=== PATIENT | male | born 1950 | race Caucasian/White ===

== ENCOUNTER 2025-03-26 10:24 | Outpatient (OUT) | payer MEDICARE, OTHER, SELFPAY ==
--- OUTSIDE RECORDS SUMMARY | 2020-10-20 05:39 | XMS_ITS | Continuity of Care Document ---
Author Name [facility] Organization [facility] Care Team Providers Care List Of First Job Ideas Name Role Phone [facility] Unavailable Unavailable Problems Combined list of problems from Department of Defense and Veterans Affairs facilities. It does not include entries that were removed or entered in error. Problem Status Onset Date Problem Type Date of Resolution Comments Source Benign essential hypertension Active Condition [facility] Osteoarthrosis, unspecified whether generalized or localized, involving shoulder Active Condition [facility] [place] [facility] Medications Combined list of outpatient medications from Department of [facility] and [facility] facilities.Medications provided include 1) outpatient medications from the last 15 months, and 2) patient-reported medications. Medication Details Route Status Patient Instructions Prescription Expires Prescription Number Last Dispense Date Ordering Provider Order Date Order Qty Source ASPIRIN 81MG TAB,EC TAKE ONE TABLET BY MOUTH EVERY DAY, WITH BREAKFAS T ORAL ACTIVE LEANDRO REED 2009 [place] CHOLECALCIF ELEAZAR 10MCG (400UNIT) TAB TAKE TWO TABLETS BY MOUTH EVERY DAY ORAL ACTIVE DELMER ALICEA 2020 [facility] CHOLECALCIF ELEAZAR 25MCG (1,000UNIT) TAB TAKE ONE TABLET BY MOUTH EVERY DAY ORAL ACTIVE [place] ALICEA 2020 [facility] FERROUS SO4 325MG TAB TAKE ONE TABLET BY MOUTH ORAL ACTIVE [facility] LISINOPRIL 10MG TAB TAKE ONE TABLET BY MOUTH EVERY DAY ORAL ACTIVE MARILYN HAYES ISTOPHER J 2014 [place] [facility] MULTIVITAMI NS W/MINERALS TAB TAKE 1 CAP/TAB BY MOUTH EVERY DAY ORAL ACTIVE LEANDRO REED 2009 [facility] [facility] Immunizations Combined list of available immunizations from the Department of Defense and [facility] facilities. Immunization Series Date Given Administered By Site Reaction Lot Number CVX Code Drug Regenerator Operator Status Comments Source INFLUENZA, UNSPECIFIED FORMULATION 2019 88 complet ed [facility] INFLUENZA (HISTORICAL) 2018 88 complet ed [facility] [place] [facility] ZOSTER RECOMBINANT 2018 187 complet ed [facility] ZOSTER RECOMBINANT 2018 187 complet ed [facility] PNEUMOCOCCAL POLYSACCHARID E PPV23 2018 33 complet ed [facility] INFLUENZA (HISTORICAL) 2017 88 complet ed [facility] [place] [facility] PNEUMOCOCCAL CONJUGATE PCV 13 2017 133 complet ed [facility] INFLUENZA (HISTORICAL) 2016 88 complet ed [facility] [place] [facility] INFLUENZA (HISTORICAL) 2014 [address] [facility] [place] [facility] INFLUENZA, UNSPECIFIED FORMULATION 2011 88 complet ed [facility] INFLUENZA, UNSPECIFIED FORMULATION 2010 88 complet ed [facility] INFLUENZA, UNSPECIFIED FORMULATION 2009 88 complet ed [facility] Social History Combined list of available smoking, tobacco, and other social history from Department of Defense and Veterans Affairs facilities. Social History Type Response Date Comment Sourc e Tobacco smoking status NHIS [facility]-TOBACCO NEVER USED 08/08/2018 [facility] History of tobacco use [place]-TOBACCO NEVER USED 08/08/2018 [facility] History of tobacco use LIFETIME NON-USER OF TOBACCO 03/15/2010 [facility]
--- OUTSIDE RECORDS SUMMARY | 2025-03-18 23:59 | XMS_ITS | Continuity of Care Document ---
Author Organization [facility] Address [address] 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) - 03/18/25 Discharge Disposition: Home (Routine DC) Attending Physician: Jair PETTY MD Encounter Type: Clinic Allergies, Adverse Reactions, Alerts No Known Allergies Assessment and Plan Future Appointments Appointment Date:04/04/2025 09:00:00 AM Scheduled Provider: Location:[facility] Appointment Type:URO Nurse Visit Appointment Date:04/09/2025 10:45:00 AM Scheduled Provider:Jair PETTY MD Location:[facility] Appointment Type:URO Office Visit Immunizations Given and Recorded Vaccine Date Status Refusal Reason zoster vaccine, inactivated 11/20/18 Recorded zoster vaccine, inactivated 09/17/18 Recorded pneumococcal 23-valent vaccine 08/08/18 Recorded pneumococcal 13-valent vaccine 08/04/17 Recorded influenza virus vaccine, inactivated 04/06/17 Melvin rded Medications alfuzosin 10 mg ER Tab 10 mg = 1 tab(s), Oral, Daily, X 90 day(s), # 90 tab(s), Refills(s) 3, Pharmacy: [facility], 174, cm, 02/27/24 10:10:00 EDT, Height/Length Dosing, 79, kg, 02/27/24 10:10:00 EDT, Weight Dosing Start Date: 03/28/24 Stop Date: 03/23/25 Status: Ordered Quantity: 90.0 Unit: tab(s) Repeat number: 4 Indications: Benign prostatic hyperplasia with lower urinary tract symptoms; Allergy Relief mg, Oral, q6hr Start Date: 02/27/24 Status: Ordered Repeat number: 1 apple cider vinegar apple cider vinegar Start Date: 02/27/24 Status: Ordered Repeat number: 1 aspirin 81 mg oral capsule mg cap(s), Oral, q24hr Start Date: 02/27/24 Status: Ordered Repeat number: 1 cinnamon mg, Oral Start Date: 02/27/24 Status: Ordered Repeat number: 1 doxycycline hyclate 100 mg Cap 100 mg = 1 cap(s), Oral, BID, Avoid sun exposure and calcium products., X 30 day(s), # 60 cap(s), Refills(s) 0, Pharmacy: [facility], 174, cm, 03/05/25 13:55:00 EDT, Height/Length Dosing, 82.7, kg, 03/05/25 13:55:00 EDT, Weight Dosing Start Date: 03/05/25 Stop Date: 04/04/25 Status: Ordered Quantity: 60.0 Unit: cap(s) Repeat number: 1 Indications: Chronic prostatitis; dutasteride 0.5 mg Cap 0.5 mg = 1 cap(s), Oral, Daily, X 90 day(s), # 90 cap(s), Refills(s) 3, Pharmacy: [facility], 174, cm, 09/04/24 10:38:00 EST, Height/Length Dosing, 83.5, kg, 09/04/24 10:38:00 EST,Weight Dosing Start Date: 09/04/24 Stop Date: 08/30/25 Status: Ordered Quantity: 90.0 Unit: cap(s) Repeat number: 4 fenofibrate 145 mg Tab 145 mg = 1 tab(s), Oral, Daily Start Date: 02/27/24 Status: Ordered Repeat number: 1 lisinopril 10 mg Tab 10 mg = 1 tab(s), Oral, Daily Start Date: 02/27/24 Status: Ordered Repeat number: 1 Multi Vitamin+ Start Date: 02/27/24 Status: Ordered Repeat number: 1 super beta advace for prostate super beta advace for prostate Start Date: 02/27/24 Status: Ordered Repeat number: 1 Vitamin C 500 mg Tab 500 mg = 1 tab(s), Oral, Daily Start Date: 03/05/25 Status: Ordered Repeat number: 1 Vitamin D3 Start Date: 02/27/24 Status: Ordered Repeat number: 1 Zinc Start Date: 02/27/24 Status: Ordered Repeat number: 1 Problem List Condition Confirmation Course Effective Dates Status H ealth Status Informant BPH with obstruction/lower urinary tract symptoms Confirmed Active Chronic prostatitis Confirmed Active ED (erectile dysfunction) Confirmed Active History of lower leg fracture Confirmed Active Hyperlipidemia Confirmed Active Hypertension Confirmed Active Bladder neoplasm of uncertain malignant potential Confirmed Active Elevated PSA Confirmed Active Procedures Procedure Date Related Diagnosis Body Site Status Cystoscope 03/18/25 Completed MRI-US fusion guided transpe rineal biopsy of prostate 08/20/24 Completed Appendectomy Completed Colonoscopy Completed Phacoemulsification of catar act with intraocular lens implantation Co mpleted Procedure on back Complet ed Total left shoulder replacement Completed Social History Social History Type Response Smoking Status Never (less than 100 in lifetime);Never; Concerns about tobacco use in household: No; Smoking Cessation Yes entered on: 03/05/25 Sex Male Sex Representation Male (finding) Hospital Discharge Instructions Patient Education 03/18/2025 11:09:09 Transurethral Resection of Bladder Tumor, Care After Transurethral Resection of Bladder Tumor, Care After The following information offers guidance on how to care for yourself after your procedure. Your health care provider may also give you more specific instructions. If you have problems or questions, contact your health care provider. What can I expect after the procedure? After the procedure, it is common to have: ??? A small amount of blood or small blood clots in your urine for up to 2 weeks. ??? Soreness or mild pain from your catheter. After your catheter is removed, you may have mild soreness, especially when urinating. ??? A need to urinate often. ??? Pain in your lower abdomen. Follow these instructions at home: Medicines ??? Take jlbn-avz-vzeqjdj and prescription medicines only as told by your health care provider. ??? If you were prescribed an antibiotic medicine, take it as told by your health care provider. Donot stop taking the antibiotic even if you start to feel better. ??? Ask your health care provider if the medicine prescribed to you: ??? Requires you to avoid driving or using machinery. ??? Can cause constipation. You may need to take these actions to prevent or treat constipation: ??? Drink enough fluid to keep your urine pale yellow. ??? Take eiaq-wxq-zclmnlz or prescription medicines. ??? Eat foods that are high in fiber, such as beans, whole grains, and fresh fruits and vegetables. ??? Limit foods that are high in fat and processed sugars, such as fried or sweet foods. Activity ??? If you were given a sedative during the procedure, it can affect you for several hours. Do not drive or operate machinery until your health care provider says that it is safe. ??? Rest as told by your health care provider. ??? Avoid sitting for a long time without moving. Get up to take short walks every 1???2 hours. This is important to improve blood flow and breathing. Ask for help if you feel weak or unsteady. ??? Do not lift anything that is heavier than 10 lb (4.5 kg), or the limit that you are told, untilyour health care provider says that it is safe. ??? Avoid intense physical activity for as long as told by your health care provider. ??? Do not have sex until your health care provider approves. ??? Return to your normal activities as told by your health care provider. Ask your health care provider what activities are safe for you. General instructions ??? If you have a catheter, follow instructions from your health care provider about caring for your catheter and your drainage bag. ??? Do not drink alcohol for as long as told by your health care provider. This is especially important if you are taking prescription pain medicines. ??? Do not use any products that contain nicotine or tobacco. These products include cigarettes, chewing tobacco, and vaping devices, such as e-cigarettes. If you need help quitting, ask your health care provider. ??? Wear compression stockings as told by your health care provider. These stockings help to prevent blood clots and reduce swelling in your legs. ??? Keep all follow-up visits. This is important. ??? You will need to be followed closely with regular checks of your bladder and urethra (cystoscopies) to make sure that the cancer does not come back. Contact a health care provider if: ??? You have blood in your urine for more than 2 weeks. ??? You become constipated. Signs of constipation may include: ??? Having fewer than three bowel movements in a week. ??? Difficulty having a bowel movement. ??? Stools that are dry, hard, or larger than normal. ??? You have a urinary catheter in place, and you have: ??? Spasms or pain. ??? Problems with your catheter or your catheter is blocked. ??? Your catheter has been taken out but you are unable to urinate. ??? You have signs of infection, such as: ??? Fever or chills. ??? Cloudy or bad-smelling urine. Get help right away if: ??? You have severe abdominal pain that gets worse or does not improve with medicine. ??? You have a lot of large blood clots in your urine. ??? You develop swelling or pain in your leg. ??? You have difficulty breathing. These symptoms may be an emergency. Get help right away. Call 911. ??? Do not wait to see if the symptoms will go away. ??? Do not drive yourself to the hospital. Summary ??? After your procedure, it is common to have a small amount of blood or small blood clots in yoururine, soreness or mild pain from your catheter, and pain in your lower abdomen. ??? Take tagj-jye-qlucfhw and prescription medicines only as told by your health care provider. ??? Rest as told by your health care provider. Follow your health care provider's instructions about returning to normal activities. Ask what activities are safe for you. ??? If you have a catheter, follow instructions from your health care provider about caring for your catheter and your drainage bag. This information is not intended to replace advice given to you by your health care provider. Make sure you discuss any questions you have with your health care provider. Document Revised: 07/15/2022 Document Reviewed: 07/15/2022 [employer] Patient Education ?? 2023 [email or web address]. 03/18/2025 11:09:08 Transurethral Resection of Bladder Tumor Transurethral Resection of Bladder Tumor Transurethral resection of a bladder tumor is the removal (resection) of cancerous tissue (tumor) from the inside wall of the bladder. The bladder is the organ that holds urine. The tumor is removed through the tube that carries urine out of the body (urethra). In a transurethral resection, a thin telescope with a light, a tiny camera, and an electric cuttingedge (resectoscope) is passed through the urethra. In men, the opening of the urethra is at the endof the penis. In women, it is just above the opening of the vagina. Tell a health care provider about: ??? Any allergies you have. ??? All medicines you are taking, including vitamins, herbs, eye drops, creams, and cudj-rlq-eaxxhnt medicines. ??? Any problems you or family members have had with anesthetic medicines. ??? Any bleeding problems you have. ??? Any surgeries you have had. ??? Any medical conditions you have, including recent urinary tract infections. ??? Whether you are or may be . What are the risks? Generally, this is a safe procedure. However, problems may occur, including: ??? Infection. ??? Bleeding. ??? Allergic reactions to medicines. ??? Damage to nearby structures or organs. ??? Difficulty urinating from blockage of the urethra or not being able to urinate (urinary retention). ??? Deep vein thrombosis. This is a blood clot that can develop in your leg. ??? Recurring cancer. What happens before the procedure? When to stop eating and drinking Follow instructions from your health care provider about what you may eat and drink before your procedure. These may include: ??? 8 hours before your procedure ??? Stop eating most foods. Do not eat meat, fried foods, or fatty foods. ??? Eat only light foods, such as toast or crackers. ??? All liquids are okay except energy drinks and alcohol. ??? 6 hours before your procedure ??? Stop eating. ??? Drink only clear liquids, such as water, clear fruit juice, black coffee, plain tea, and sportsdrinks. ??? Do not drink energy drinks or alcohol. ??? 2 hours before your procedure ??? Stop drinking all liquids. ??? You may be allowed to take medicines with small sips of water. Medicines Ask your health care provider about: ??? Changing or stopping your regular medicines. This is especially important if you are taking diabetes medicines or blood thinners. ??? Taking medicines such as aspirin and ibuprofen. These medicines can thin your blood. Do not take these medicines unless your health care provider tells you to take them. ??? Taking wjwo-lgq-geblmdb medicines, vitamins, herbs, and supplements. General instructions ??? If you will be going home right after the procedure, plan to have a responsible adult: ??? Take you home from the hospital or clinic. You will not be allowed to drive. ??? Care for you for the time you are told. ??? Ask your health care provider what steps will be taken to help prevent infection. These steps may include: ??? Washing skin with a germ-killing soap. ??? Taking antibiotic medicine. ??? Do not use any products that contain nicotine or tobacco for at least 4 weeks before the procedure. These products include cigarettes, chewing tobacco, and vaping devices, such as e-cigarettes. If you need help quitting, ask your health care provider. What happens during the procedure? An IV will be inserted into one of your veins. ??? You will be given one or more of the following: ??? A medicine to help you relax (sedative). ??? A medicine that is injected into your spine to numb the area below and slightly above the injection site (spinal anesthetic). ??? A medicine that is injected into an area of your body to numb everything below the injection site (regional anesthetic). ??? A medicine to make you fall asleep (general anesthetic). ??? Your legs will be placed in foot rests (stirrups) to open your legs and bend your knees. ??? The resectoscope will be passed through your urethra and into your bladder. ??? The part of your bladder with the tumor will be resected by the cutting edge of the resectoscope. ??? Fluid will be passed to rinse out the cut tissues (irrigation). ??? The resectoscope will then be taken out. ??? A small, thin tube (catheter) will be passed through your urethra and into your bladder. The catheter will drain urine into a bag outside of your body. The procedure may vary among health care providers and hospitals. What happens after the procedure? Your blood pressure, heart rate, breathing rate, and blood oxygen level will be monitored untilyou leave the hospital or clinic. ??? You may continue to receive fluids and medicines through an IV. ??? You will be given pain medicine to relieve pain. ??? You will have a catheter to drain your urine. ??? The amount of urine will be measured. If you have blood in your urine, your bladder may be rinsed out by passing fluid through your catheter. ??? You will be encouraged to walk as soon as you can. ??? You may have to wear compression stockings. These stockings help to prevent blood clots and reduce swelling in your legs. ??? If you were given a sedative during the procedure, it can affect you for several hours. Do not drive or operate machinery until your health care provider says that it is safe. Summary ??? Transurethral resection of a bladder tumor is the removal (resection) of a cancerous growth (tumor) on the inside wall of the bladder. ??? To do this procedure, your health care provider uses a thin telescope with a light, a tiny camera, and an electric cutting edge (resectoscope) that is guided to your bladder through your urethra.The part of your bladder that is affected by the tumor will be resected by the cutting edge of the resectoscope. ??? A catheter will be passed through your urethra and into your bladder. The catheter will drain urine into a bag outside of your body. ??? If you will be going home right after the procedure, plan to have a responsible adult take you home from the hospital or clinic. You will not be allowed to drive. This information is not intended to replace advice given to you by your health care provider. Make sure you discuss any questions you have with your health care provider. Document Revised: 07/15/2022 Document Reviewed: 07/15/2022 [employer] Patient Education ?? 2023 [email or web address]. 03/18/2025 11:09:04 Transurethral Resection of the Prostate, Care After Transurethral Resection of the Prostate, Care After The following information offers guidance on how to care for yourself after your procedure. Your health care provider may also give you more specific instructions. If you have problems or questions, contact your health care provider. What can I expect after the procedure? After the procedure, it is common to have: ??? Mild pain in your lower abdomen. ??? Soreness or mild discomfort in your penis or when you urinate. This is from having the catheterinserted during the procedure. ??? A sudden urge to urinate (urgency). ??? A need to urinate often. ??? A small amount of blood in your urine. You may notice some small blood clots in your urine. These are normal. Follow these instructions at home: Medicines ??? Take gnoi-eee-rhdfahd and prescription medicines only as told by your health care provider. ??? If you were prescribed an antibiotic medicine, take it as told by your health care provider. Donot stop taking the antibiotic even if you start to feel better. Activity ??? Rest as told by your health care provider. ??? Avoid sitting for a long time without moving. Get up to take short walks every 1???2 hours. This is important to improve blood flow and breathing. Ask for help if you feel weak or unsteady. You may increase your physical activity gradually as you start to feel better. ??? Do not drive or operate machinery until your health care provider says that it is safe. ??? Do not ride in a car for long periods of time, or as told by your health care provider. ??? Avoid intense physical activity for as long as told by your health care provider. ??? Do not lift anything that is heavier than 10 lb (4.5 kg), or the limit that you are told, untilyour health care provider says that it is safe. ??? Do not have sex until your health care provider approves. ??? Return to your normal activities as told by your health care provider. Ask your health care provider what activities are safe for you. Preventing constipation You may need to take these actions to prevent or treat constipation: ??? Drink enough fluid to keep your urine pale yellow. ??? Take axjx-lzp-ekbqroy or prescription medicines. ??? Eat foods that are high in fiber, such as beans, whole grains, and fresh fruits and vegetables. ??? Limit foods that are high in fat and processed sugars, such as fried or sweet foods. General instructions ??? Do not strain when you have a bowel movement. Straining may lead to bleeding from the prostate.This may cause blood clots and trouble urinating. ??? Do not use any products that contain nicotine or tobacco. These products include cigarettes, chewing tobacco, and vaping devices, such as e-cigarettes. If you need help quitting, ask your health care provider. ??? If you go home with a tube draining your urine (urinary catheter), care for the catheter as told by your health care provider. ??? Wear compression stockings as told by your health care provider. These stockings help to prevent blood clots and reduce swelling in your legs. ??? Keep all follow-up visits. This is important. Contact a health care provider if: ??? You have signs of infection, such as: ??? Fever or chills. ??? Urine that smells very bad. ??? Swelling around your urethra that is getting worse. ??? Swelling in your penis or testicles. ??? You have difficulty urinating. ??? You have pain that gets worse or does not improve with medicine. ??? You have blood in your urine that does not go away after 1 week of resting and drinking more fluids. ??? You have trouble having a bowel movement. ??? You have trouble having or keeping an erection. ??? No semen comes out during orgasm (dry ejaculation). ??? You have a urinary catheter in place, and you have: ??? Spasms or pain. ??? Problems with your catheter or your catheter is blocked. Get help right away if: ??? You are unable to urinate. ??? You are having more blood clots in your urine instead of fewer. ??? You have: ??? Large blood clots. ??? A lot of blood in your urine. ??? Pain in your back or lower abdomen. ??? You have difficulty breathing or shortness of breath. ??? You develop swelling or pain in your leg. These symptoms may be an emergency. Get help right away. Call 911. ??? Do not wait to see if the symptoms will go away. ??? Do not drive yourself to the hospital. Summary ??? After the procedure, it is common to have a small amount of blood in your urine. ??? Follow restrictions about lifting and sexual activity as told by your health care provider. Askwhat activities are safe for you. ??? Keep all follow-up visits. This is important. This information is not intended to replace advice given to you by your health care provider. Make sure you discuss any questions you have with your health care provider. Document Revised: 04/05/2022 Document Reviewed: 04/05/2022 [employer] Patient Education ?? 2023 [email or web address]. 03/18/2025 11:09:03 Transurethral Resection of the Prostate Transurethral Resection of the Prostate Transurethral resection of the prostate (TURP) is the removal, or resection, of part of the prostate tissue. This procedure is done to treat an enlarged prostate gland (benign prostatic hyperplasia). The goal of TURP is to remove enough prostate tissue to allow for a normal flow of urine. The procedure will allow you to empty your bladder more completely when you urinate so that you can urinate less often. In a transurethral resection, a thin telescope with a light, a camera, and an electric cutting edge(resectoscope) is passed through the urethra and into the prostate. The opening of the urethra is at the end of the penis. Tell a health care provider about: ??? Any allergies you have. ??? All medicines you are taking, including vitamins, herbs, eye drops, creams, and cjfe-fdw-hzljwac medicines. ??? Any problems you or family members have had with anesthetic medicines. ??? Any bleeding problems you have. ??? Any surgeries you have had. ??? Any medical conditions you have. ??? Any prostate infections you have had. What are the risks? Generally, this is a safe procedure. However, problems may occur, including: ??? Infection. ??? Bleeding. ??? Allergic reactions to medicines. ??? Blood in the urine (hematuria). ??? Damage to nearby structures or organs. Other problems may occur, but they are rare. They include: ??? Dry ejaculation, or having no semen come out during orgasm. ??? Erectile dysfunction, or being unable to have or keep an erection. ??? Scarring that leads to narrowing of the urethra. This narrowing may block the flow of urine. ??? Inability to control when you urinate (incontinence). ??? Deep vein thrombosis. This is a blood clot that can develop in your leg. ??? TURP syndrome. This can happen when you lose too much sodium during or after the procedure. Some signs and symptoms of this condition include: ??? Weakness. ??? Headaches. ??? Nausea or vomiting. ??? Muscle cramping. What happens before the procedure? When to stop eating and drinking Follow instructions from your health care provider about what you may eat and drink before your procedure. These may include: ??? 8 hours before your procedure ??? Stop eating most foods. Do not eat meat, fried foods, or fatty foods. ??? Eat only light foods, such as toast or crackers. ??? All liquids are okay except energy drinks and alcohol. ??? 6 hours before your procedure ??? Stop eating. ??? Drink only clear liquids, such as water, clear fruit juice, black coffee, plain tea, and sportsdrinks. ??? Do not drink energy drinks or alcohol. ??? 2 hours before your procedure ??? Stop drinking all liquids. ??? You may be allowed to take medicines with small sips of water. If you do not follow your health care provider's instructions, your procedure may be delayed or canceled. Medicines Ask your health care provider about: ??? Changing or stopping your regular medicines. This is especially important if you are taking diabetes medicines or blood thinners. ??? Taking medicines such as aspirin and ibuprofen. These medicines can thin your blood. Do not take these medicines unless your health care provider tells you to take them. ??? Taking kvor-gzt-tukttjd medicines, vitamins, herbs, and supplements. Surgery safety Ask your health care provider what steps will be taken to help prevent infection. These steps may include: ??? Removing hair at the surgery site. ??? Washing skin with a germ-killing soap. ??? Taking antibiotic medicine. General instructions ??? Do not use any products that contain nicotine or tobacco for at least 4 weeks before the procedure. These products include cigarettes, chewing tobacco, and vaping devices, such as e-cigarettes. If you need help quitting, ask your health care provider. ??? If you will be going home right after the procedure, plan to have a responsible adult: ??? Take you home from the hospital or clinic. You will not be allowed to drive. ??? Care for you for the time you are told. What happens during the procedure? An IV will be inserted into one of your veins. ??? You will be given one or more of the following: ??? A medicine to help you relax (sedative). ??? A medicine to make you fall asleep (general anesthetic). ??? A medicine that is injected into your spine to numb the area below and slightly above the injection site (spinal anesthetic). ??? Your legs will be placed in foot rests (stirrups) so that your legs are apart and your knees are bent. ??? The resectoscope will be passed through your urethra to your prostate. ??? Parts of your prostate will be resected using the cutting edge of the resectoscope. ??? Fluid will be passed to rinse out the cut tissues (irrigation). ??? The resectoscope will be removed. ??? A small, thin tube (catheter) will be passed through your urethra and into your bladder. The catheter will drain urine into a bag outside of your body. The procedure may vary among health care providers and hospitals. What happens after the procedure? Your blood pressure, heart rate, breathing rate, and blood oxygen level will be monitored untilyou leave the hospital or clinic. ??? You will be given fluids through the IV. The IV will be removed when you start eating and drinking normally. ??? You may have some pain. Pain medicine will be available to help you. ??? You will have a catheter draining your urine. ??? You may have blood in your urine. Your catheter may be kept in until your urine is clear. ??? Your urinary drainage will be monitored. If necessary, your bladder may be rinsed out (irrigated) through your catheter. ??? You will be encouraged to walk around as soon as possible. ??? You may have to wear compression stockings. These stockings help to prevent blood clots and reduce swelling in your legs. ??? If you were given a sedative during the procedure, it can affect you for several hours. Do not drive or operate machinery until your health care provider says that it is safe. Summary ??? Transurethral resection of the prostate (TURP) is the removal (resection) of part of the prostate tissue. ??? The goal of this procedure is to remove enough prostate tissue to allow for a normal flow of urine. ??? Follow instructions from your health care provider about taking medicines and about eating and drinking before the procedure. This information is not intended to replace advice given to you by your health care provider. Make sure you discuss any questions you have with your health care provider. Document Revised: 04/05/2022 Document Reviewed: 04/05/2022 [employer] Patient Education ?? 2023 [employer]. Follow Up Care 03/17/2025 12:44:54 With:MALINDA MCCLOUD, Jair Clark, URL Address: [facility] [address], [place] [address]- When: Unknown Patient Care team information Care Team Personnel Name: Glendy BURNETT DO Member Role: Primary Care Physician Address: [address] [place] [id number] Telecom: Care Team Related Persons Name: SLOAN ABURTO Insurance Providers Guarantor name: STEW VASQUEZ Health Plan Information #: 1 Payer: MEDICARE Payer Identifier: [id number] Member Number: [id number] Group Number: a Subscriber Identifier: [id number] Relationship to Subscriber: Self Coverage Type: MEDICARE Coverage Verification Date: NA Telecom: [phone] Address: [address] Health Plan Information #: 2 Payer: [employer] Payer Identifier: [id number] Member Number: [id number] Group Number: [id number] Subscriber Identifier: [id number] Relationship to Subscriber: Self Coverage Type: PRIVATE HEALTH INSURANCE Coverage Verification Date: NA Telecom: NA Address: [address] [place] [address]
--- OUTSIDE RECORDS SUMMARY | 2025-03-26 10:30 | XMS_ITS | Clinical Summary ---
Author Organization [facility] Address [address] [place] [address] Care Team Providers Care Credit Reference Clerk Name Role Phone Unavailable Primary Care Provider Unavailabl e Allergies No known active allergies Medications tamsulosin (Flomax) 0.4 MG 24 hr capsule 4 Active lisinopril 10 MG tablet 4 Active fenofibrate (Tricor) 145 MG tablet 4 Active ASPIRIN 81 PO Take by mouth Ac tive methylPREDNISol one (Medrol Dospak) 4 MG tabletsIndicati ons:Acute non-recurrent frontal sinusitis Follow schedule on package instructions 21 tablet 4 Active Social History Tobacco Use Types Packs/Day Years Used Date Smoking Tobacco: Never Assessed Tobacco Cessation:Counseling Given: Not Answered Sex and Gender Information Value Date Recorded Sex Assigned at Not on file Legal Sex Male 4:44 PM EDT Gender Identity Not on file Sexual Orientation Not on file Last Filed Vital Signs Vital Sign Reading Time Taken Comments Blood Pressure 110/70 12/05/2023 3:06 PM EDT Pulse 95 12/05/2023 3:06 PM EDT Temperature 36.4 C (97.6 F) 12/05/2023 3:06 PM EDT Respiratory Rate - - Oxygen Saturation 95% 12/05/2023 3:06 PM EDT Inhaled Oxygen Concentration - - Weight 82.6 kg (182 lb) 12/05/2023 3:06 PM EDT Height - - Body Mass Index - - Plan of Treatment Not on file Insurance [facility] MEDICARE ADVANTAGE
--- OUTSIDE RECORDS SUMMARY | 2025-03-26 10:30 | XMS_ITS | Clinical Summary ---
Author Organization [facility] Address [address] [place] [address], [address] [place] [address] Care Team Providers Care Golf Club Assembler Name Role Phone Unavailable Primary Care Provider Unavailabl e Social History Tobacco Use Types Packs/Day Years Used Date Smoking Tobacco: Never Assessed Sex and Gender Information Value Date Recorded Sex Assigned at Not on file Legal Sex Male 9:47 PM EST Gender Identity Not on file Sexual Orientation Not on file Plan of Treatment Not on file
--- NOTE | 2025-03-26 10:53 | ECG_ITS ---
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
--- NOTE | 2025-03-26 11:24 | PM.PRESUREVA ---
History of Present Illness History of Present Illness Chief complaint: Bladder Tumor, BPH with Obstruction Narrative: Patient presents for presurgical testing. Please see HPI from Dr. Goldberg dated March 18, 2025. Review of Systems ROS Narrative Please see ROS from Dr. Goldberg dated March 18, 2025. [facility] Medical History (Updated 03/26/25 @ 11:15 by Corrie Simpson NP) Arthritis ?M19.90 - Unspecified osteoarthritis, unspecified site (ICD-10) Seasonal allergies ?J30.2 - Other seasonal allergic rhinitis (ICD-10) Heartburn ?R12 - Heartburn (ICD-10) Leg fracture, right ?S82.91XA - Unspecified fracture of right lower leg, initial encounter for closed fracture (ICD-10) Hypertension ?I10 - Essential (primary) hypertension (ICD-10) Erectile dysfunction ?N52.9 - Male erectile dysfunction, unspecified (ICD-10) Chronic prostatitis ?N41.1 - Chronic prostatitis (ICD-10) Elevated PSA ?R97.20 - Elevated prostate specific antigen [PSA] (ICD-10) Hyperlipidemia ?E78.5 - Hyperlipidemia, unspecified (ICD-10) BPH with obstruction/lower urinary tract symptoms ?N40.1 - Benign prostatic hyperplasia with lower urinary tract symptoms (ICD-10) ?N13.8 - Other obstructive and reflux uropathy (ICD-10) Bladder tumor ?D49.4 - Neoplasm of unspecified behavior of bladder (ICD-10) Surgical History (Updated 03/26/25 @ 11:15 by Corrie Simpson NP) History of lumbosacral spine surgery ?Z98.890 - Other specified postprocedural states (ICD-10) Status post total shoulder arthroplasty ?Z96.619 - Presence of unspecified artificial shoulder joint (ICD-10) History of cataract extraction with lens replacement H/O colonoscopy ?Z98.890 - Other specified postprocedural states (ICD-10) History of appendectomy ?Z90.49 - Acquired absence of other specified parts of digestive tract (ICD-10) H/O prostate biopsy ?Z98.890 - Other specified postprocedural states (ICD-10) H/O cystoscopy ?Z98.890 - Other specified postprocedural states (ICD-10) Family History (Updated 03/26/25 @ 11:15 by Corrie Simpson NP) Other Family history of aneurysm Family history of colon cancer Family history of diabetes mellitus Family history of heart disease Family history of hypertension Social History (Updated 03/26/25 @ 11:09 by Corrie Simpson NP) Within the past year, how often did you have a drink containing alcohol: never Score interpretation: A score less than 4 is consistent with normal alcohol consumption. Smoking status: Never smoker Non-prescribed substance use: denies use Highest level of school completed/degree received: high school graduate Meds Home Medications and Allergies Home Medications ?Medication ?Instructions ?Recorded ?Confirmed ?Type alfuzosin 10 mg tablet,extended 10 mg PO DAILY 03/26/25 03/26/25 History release 24 hr apple cider vinegar 500 mg tablet 500 mg PO DAILY 03/26/25 03/26/25 History ascorbic acid (vitamin C) 500 mg 500 mg PO DAILY 03/26/25 03/26/25 History capsule aspirin 81 mg tablet,delayed 81 mg PO DAILY 03/26/25 03/26/25 History release (Adult Aspirin Regimen) mdpzkqt-sigpodimi-zgon 333 mg-133 1 tab PO DAILY 03/26/25 03/26/25 History mg-5 mg tablet cetirizine 10 mg tablet (24Hour 10 mg PO DAILY 03/26/25 03/26/25 History Allergy) cholecalciferol (vitamin D3) 50 2,000 unit PO DAILY 03/26/25 03/26/25 History mcg (2,000 unit) capsule cinnamon bark 500 mg capsule 1,000 mg PO DAILY 03/26/25 03/26/25 History (Cinnamon) dutasteride 0.5 mg capsule 0.5 mg PO DAILY 03/26/25 03/26/25 History fenofibrate nanocrystallized 145 145 mg PO DAILY 03/26/25 03/26/25 History mg tablet lisinopril 10 mg tablet 10 mg PO DAILY 03/26/25 03/26/25 History multivitamin (Daily Multi-Vitamin 1 tab PO DAILY 03/26/25 03/26/25 History tablet) red beet 500 mg capsule 500 mg PO DAILY 03/26/25 03/26/25 History zinc 22 mg tablet 22 mg PO DAILY 03/26/25 03/26/25 History Allergies Allergy/AdvReac Type Severity Reaction Status Date / Time No Known Drug Allergies Allergy Verified 03/26/25 11:08 Exam Narrative Exam Narrative: Constitutional: Awake, alert, comfortable, well-appearing, nontoxic, interactive, vital signs as charted Head: Normocephalic, atraumatic Neck: Supple, normal appearance, normal range of motion, no meningeal signs, no lymphadenopathy Respiratory: No respiratory distress, breath sounds clear Cardiovascular: Regular rate and rhythm, strong and regular heart tones Abdomen: Nontender, normal bowel sounds, soft, no CVA tenderness Musculoskeletal: Normal gait, no swelling or edema Skin: No rashes or induration, no lesions, only visible skin inspected Neuro: No neurological deficits, normal sensation Psychiatric: Oriented ?3, normal affect Assessment and Plan Assessment and Plan (1) BPH with obstruction/lower urinary tract symptoms: (2) Bladder tumor: Plan Cystoscopy, TURBT, TURP scheduled with Dr. Goldberg April 01, 2025.
[2025-03-26 11:50] LABS: Anion Gap 11.7; Blood Urea Nitrogen 23.0 mg/dL (7.0-18.0); Calcium 9.3 mg/dL (8.5-10.1); Carbon Dioxide 25.2 mmol/L (21.0-32.0); Chloride 106 mmol/L (98-107); Estimated GFR (African America >60 (>=60 mL/min/1.73m^2); Estimated GFR (Non-African Ame 54 (>=60 mL/min/1.73m^2); Glucose 133 mg/dL (74-106); Potassium 3.9 mmol/L (3.5-5.1); Sodium 139 mmol/L (136-145)
[2025-03-26 12:35] LABS: Hematocrit 40.9 % (42.0-54.0); Hemoglobin 13.5 g/dL (14.0-18.0); Immature Granulocytes Abs Auto 0.03 10^3/uL (0.00-0.03); Immature Granulocytes Pct Auto 0.5 % (0.0-0.5); Lymphocytes Absolute Auto 1.5 10^3/uL (1.2-3.8); Mean Corpuscular HGB Conc 33.0 g/dL (29.9-35.2); Mean Corpuscular Hemoglobin 29.3 pg (25.9-34.0); Mean Corpuscular Volume 88.7 fL (80.0-94.0); Platelet Count 204 10^3/uL (150-450); Red Blood Count 4.61 10^6/uL (4.70-6.10); White Blood Count 5.7 10^3/uL (4.0-11.0)
[2025-03-26 13:50] LABS: INR 1.21; Partial Thromboplastin Time 27.6 sec (22.3-36.2); Prothrombin Time 12.6 sec (9.0-11.6)
== END 2025-03-26 10:25 | disposition home or self-care (01) ==
LOC: PST 10:28
PROVIDERS: Visit Provider Urology
DX: Z01.810 Encounter for preprocedural cardiovascular examination (principal); Z01.812 Encounter for preprocedural laboratory examination; Z01.818 Encounter for other preprocedural examination; D49.4 Neoplasm of unspecified behavior of bladder
CPT/HCPCS: 80048; 85025; 85610; 85730; 93005; G0463

== ENCOUNTER 2025-04-01 07:24 | Day surgery (SDC) | payer MEDICARE, OTHER, SELFPAY ==
[2025-03-26 11:22] VITALS: BP 126/74; PULSE 60; TEMP 36.3; O2SAT 96; BMI 28.2
[2025-04-01] VITALS (23 sets, daily range): BP systolic 109–138; BP diastolic 59–84; PULSE 57–71; TEMP 36.2–36.7; O2SAT 92–100; BMI 27.8
--- OUTSIDE RECORDS SUMMARY | 2025-04-01 07:26 | XMS_ITS | Clinical Summary ---
Author Organization [facility] Address [address] [place] [address], [address] [place] [address] Care Team Providers Care Channel Business Manager Name Role Phone Unavailable Primary Care Provider [...]
--- OUTSIDE RECORDS SUMMARY | 2025-04-01 07:26 | XMS_ITS | Clinical Summary ---
Author Organization [facility] Address [address] [place] [address] Care Team Providers Care Word Processor Name Role Phone Unavailable Primary Care Provider [...] Plan of Treatment Not on file Insurance [facility] MEDICARE ADVANTAGE
[2025-04-01] MEDS: 0.9 % SODIUM CHLORIDE 1,000 ML 50 ML IV (07:57)
[2025-04-01] MEDS: LEVOFLOXACIN 500 MG/100 ML-D5W PREMIX 100 MG IV (09:50)
--- NOTE | 2025-04-01 11:48 | PM.URSON ---
Urology Surgery Operative Note Operative Note Procedure Date: 04/01/25 Time Out Performed: yes Pre-op Diagnosis: 1. BPH with LUTS refractory to medications. 2. Bladder lesions Procedures performed: 1. Cystoscopy. 2. Transurethral resection of the prostate. #3. Transurethral resection of bladder lesions approximately 3 cm Anesthesia: SYED Primary Surgeon: Jair Goldberg Complications: None Estimated blood loss (mL): 15 Findings: 1. Tightly obstructing right lateral and anterior lobes. 2. Red papillary lesions on the floor proximal to right UO Specimens: 1. Prostate tissue. 2. Bladder lesions Drains: 22 Wallisian three-way coud? Valverde catheter in the bladder taped to traction and CBI. Indications for Procedures: This gentleman has bladder outlet obstructive symptoms refractory to maximal medications. He is desirous for a TURP. He also has a few papillary red lesions on the floor of the bladder. He now presents for cystoscopy, TURP and TURBT. He has signed an informed consent after risks were explained. Some of these risks include bleeding, infection, anesthesia, urinary incontinence both temporary and permanent, retrograde ejaculation, erectile dysfunction and possible need for further operations to name a few. Detailed description of Procedure: The patient was brought to the operating room and placed on the operating room table in the supine position. SCDs were placed on the lower extremities and turned on and functioning during the entire case. Timeout was done by all parties in the room. We all agreed upon the patient's identification and the planned procedures for this patient. Genn. anesthesia was then administered. The patient was then repositioned into the modified dorsal lithotomy position. All pressure points were satisfactorily padded. Genitalia were sterilely prepped and draped in usual fashion. I started by passing a 26 Wallisian Olympus resectoscope with a standard bipolar loop electrode per urethra and into the bladder. I identified the papillary red lesions on the floor of the bladder proximal to the right UO. I uniformly and deeply resected these. The pieces were manually extracted and sent separately labeled bladder lesions. The resection bed was fulgurated. I then marked the UOs with the loop electrode. I then brought the scope back into the prostatic urethra. The right lateral lobe was enormous and protruding across the midline to coapt with the left lateral lobe which was not enlarged. The anterior tissue was capacious and protruding downward coapting with the right lateral lobe. I resected from the bladder neck posteriorly to the Veru. I then started resecting this capacious right lateral lobe. Once this was done the anterior capacious lobe fell down into view even more dramatically. This was thoroughly resected also to the capsular level. The vaporization loop was used also intermittently to maintain hemostasis. The Ilich evacuator was used to get the prostate chips out of the bladder and these were sent for permanent sections labeled prostate tissue. The apex was then opened up carefully. Upon completion there was no reason to resect the left lateral lobe because it was not contributing to obstruction. With the scope at the apex the prostatic urethra and bladder neck were wide open. Once it was verified that there were no chips remaining in the bladder and there was no bleeding within the bladder or in the prostate, the scope was then removed. I then passed a 22 Wallisian three-way coud? Valverde catheter into the bladder. It was manually irrigated with a Izabella syringe to verify correct placement. 30 cc of fluid was placed in the balloon. It was taped to traction and CBI was started. It irrigated to a light pink color. The anesthetic was reversed. [facility] and wheeled to PACU in stable condition. Urinary Catheter Management Urinary Catheter Management 3-way Urethral: Cath placed during this visit: no
[2025-04-01] MEDS: SOLIFENACIN SUCCINATE 10 MG TABLET PO (12:11)
[2025-04-01] MEDS: 0.9 % SODIUM CHLORIDE 1,000 ML 80 ML IV ×2 (12:11→23:35)
[2025-04-01] MEDS: PROMETHAZINE HCL 12.5 MG in 0.9 % SODIUM CHLORIDE 50 ML 202 MG IV (13:01)
[2025-04-01] MEDS: SODIUM CHLORIDE IRRIG SOLUTION 3,000 ML 3000 ML IRR ×10 (13:02→23:38)
[2025-04-01] MEDS: CEFAZOLIN SODIUM/DEXTROSE,ISO 1 GM/50 ML PREMIX IV ×2 (17:31→23:35)
[2025-04-01] MEDS: HYDROCODONE/ACET 5-325 MG TABLET 1 TAB PO (22:07)
[2025-04-02] MEDS: SODIUM CHLORIDE IRRIG SOLUTION 3,000 ML 3000 ML IRR ×2 (01:42→03:13)
[2025-04-02 03:28] VITALS: BP 107/58; PULSE 57; TEMP 36.7; O2SAT 94
--- NOTE | 2025-04-02 05:10 | PC.NURSE ---
0504 traction removed. pt tolerated well.
[2025-04-02] MEDS: HYDROCODONE/ACET 5-325 MG TABLET 1 TAB PO (05:16)
[2025-04-02 07:22] VITALS: BP 128/70; PULSE 62; TEMP 36.4; O2SAT 94
[2025-04-02] MEDS: FENOFIBRATE 54 MG TABLET 162 MG PO (09:40)
[2025-04-02] MEDS: ASPIRIN 81 MG TABLET.DR PO (09:40)
[2025-04-02] MEDS: LISINOPRIL 10 MG TABLET PO (09:40)
[2025-04-02] MEDS: ALFUZOSIN HCL 10 MG TAB.ER.24H PO (09:40)
[2025-04-02] MEDS: ASCORBIC ACID 500 MG TABLET PO (09:40)
[2025-04-02] MEDS: CHOLECALCIFEROL (VITAMIN D3) 25 MCG/1,000 UNITS TABLET 50 MCG PO (09:40)
[2025-04-02] MEDS: CETIRIZINE HCL 10 MG TABLET PO (09:40)
[2025-04-02] MEDS: DUTASTERIDE 0.5 MG CAPSULE PO (09:40)
[2025-04-02] MEDS: MULTIVITAMIN TABLET 1 TAB PO (09:40)
== END 2025-04-02 10:40 | disposition home or self-care (01) ==
LOC: SURGOUT 11:43 → MS 12:22
PROVIDERS: Visit Provider Urology
PROC: (CPT 52234; principal; 2025-04-01 09:00)
DX: N40.1 Benign prostatic hyperplasia with lower urinary tract symptoms (principal); N32.89 Other specified disorders of bladder; Z90.49 Acquired absence of other specified parts of digestive tract; Z96.619 Presence of unspecified artificial shoulder joint; E78.5 Hyperlipidemia, unspecified; I10 Essential (primary) hypertension; K21.9 Gastro-esophageal reflux disease without esophagitis; M19.90 Unspecified osteoarthritis, unspecified site
CPT/HCPCS: 52234; 52601; 36415; 94761; J0131; J0690; J1100; J1171; J2250; J2405; J2550; J2704; J3010